=== PATIENT | female | born 1970 | race Caucasian/White ===

== ENCOUNTER 2016-10-02 10:30 | Emergency (ER) | payer OTHER ==
[~2016-10-02] VITALS: Ht 165.1 cm; Wt 148.6 kg
[~2016-10-02 10:30] MED LIST: CITA20TA PO; DEPO PROVERA IM; HYDR-4003 PO
[2016-10-02 10:33] VITALS: BP 152/97; PULSE 84; RESP 16; O2SAT 99
--- NOTE | 2016-10-02 10:45 | ED.REPORT ---
HPI-Chest Pain 40 and Over Date of Service Oct 02, 2016 ED Provider: Karson Woodard DO A 46 year old female presents to the ED complaining of bilateral lower extremity swelling that began two weeks ago. Associated symptoms included chest heaviness, weakness, recent weight loss, abdominal discomfort and mild SOB. She reports that the swelling has not improved since initial onset. Patient was sent from Urgent Care with concern for a possible blood clot. She recently travelled to [place]. Patient denies fever, chills, or cough. Nursing Notes Stated Complaint: POSSIBLE BLOOD CLOTS Chief Complaint: Chest Pain Nursing Notes Reviewed: Yes Allergies: Uncoded Allergies: SHELLFISH (Allergy, Unknown, 05/23/16) Scheduled Furosemide (Lasix) 20 Mg Tablet 20 MG PO DAILY Scheduled PRN Ibuprofen (Ibuprofen) 400 Mg Tablet 400 MG PO QID PRN PRN For Pain Miscellaneous Medications ([Esure birthcontrol]) General Time Seen by MD: 10:42 Chief Complaint Other (Lower extremity edema ) Hx Obtained From: Patient Arrived By: Walk-in Sudden in Onset?: No Onset Occurred: More than a week ago... (2 weeks) Symptom Duration: Since onset Location: : Chest left: Chest right Quality: Heaviness Radiation: : Does not radiate Migration/Movement: Reports: None Severity: Current: Mild Severity: Maximum: Mild Associated with: Denies: Cough, non-productive, Cough, productive, Fever, Shortness of Breath Pertinent Negative: Pt denies other symptoms Recent Healthcare: No recent hospitalization, Recent doctor visit Risk Factors )( CAD Risk Stratification Risk factors reviewed )( TAD Risk Stratification Risk factors reviewed )( PE Risk Stratification Risk factors reviewed PERC Rule Age 50 or over PERC Result: One or more crit "Yes" Well's Criteria for PE Well's PE Score: 0-2 pts (low risk 3.6%) Past Medical History Past Medical History None reported Past Surgical History None reported Smoking History Unknown if Ever Smoker Social History Other Social History: Good social support, Local resident Ambulatory Status Independent Review of Systems Constitutional: Reports: Recent wt loss, Weakness - generalized, Denies: Chills, Fever Respiratory: Reports: Shortness of breath (mild), Denies: Non-productive cough, Prod cough, clear Cardiovascular: Reports: Chest pain (chest heaviness) GI: Reports: Abdominal pain, Denies: Nausea, Vomiting Neurologic: Denies: Change LOC Complete sys rev & neg: except as marked. Physical Exam Initial Vital Signs Vital Signs (First) Date Time Temp Pulse Resp B/P Pulse Ox O2 Delivery O2 Flow Rate FiO2 10/02/16 10:33 36.4 84 16 152/97 99 Room Air Initial VS: Reviewed Head / Eyes: Atraumatic, Normocephalic, PERRL Skin: Warm, Dry, No cyanosis Neurologic: Alert, Oriented, Nonfocal Psychiatric: Mood/affect normal, Behavior normal, Normal thought content General/Constitutional: Awake, Alert Respiratory / Chest: Atraumatic, Breath sounds NL, Breath sounds = bilat Cardiovascular: Heart rate NL, Regular rhythm, Heart sounds NL CARDIO: Trace edema in bilateral lower extremities Abdomen: Atraumatic, Soft Neck: Atraumatic, Supple, No JVD Lower Extremity / Pelvis / MS: Atraumatic, Neurologic intact, Vascular intact Upper Extremity / MS: Atraumatic, Inspection NL, Neurologic intact, Vascular intact Interpretation & Diagnostics Lab Results Interpretation Result Diagram: 10/02/16 1050 10/02/16 1050 Test 10/02/16 10:50 White Blood Count 13.1th/mm3 (3.8-10.1) Red Blood Count 5.47mil/mm3 (3.90-5.20) Hemoglobin 16.4g/dL (12.0-15.6) Hematocrit 47.5% (35.0-46.0) Mean Corpuscular Volume 86.8fL (81-100) Mean Corpuscular Hemoglobin 30.0pg (27.0-35.0) Mean Corpuscular Hemoglobin Concent 34.5% (32.0-37.0) Red Cell Distribution Width 13.4% (12.3-15.4) Platelet Count 327bil/L (150-400) Neutrophils (%) (Auto) 57.5% (40-74) Lymphocytes (%) (Auto) 30.4% (14-46) Monocytes (%) (Auto) 8.3% (4-12) Eosinophils (%) (Auto) 3.2% (0-5) Basophils (%) (Auto) 0.2% (0-3) D-Dimer < 0.5mg/L (<0.50) Urine Color Yellow (YELLOW) Urine Appearance Clear (CLEAR,HAZY) Urine pH 6.0 (5.0-8.0) Urine Specific [place] 1.019 (1.003-1.035) Urine Protein Negativemg/dL (NEG,TRACE) Urine Glucose (UA) Negativemg/dL (NEGATIVE) Urine Ketones Negativemg/dL (NEGATIVE) Urine Occult Blood Negative (NEGATIVE) Urine Nitrite Negative (NEGATIVE) Urine Bilirubin Negative (NEGATIVE) Urine Urobilinogen Normalmg/dL (NORMAL) Urine Leukocyte Esterase Negative (NEGATIVE) Urine RBC 0-2/hpf (0-2) Urine WBC 0-5/hpf (0-5) Urine Epithelial Cells Few/hpf (NONE-MOD) Urine Crystals None seen (NONE SEEN) Urine Bacteria Few/hpf (NONE-FEW) Urine Hyaline Casts None/lpf (NONE) Urine Granular Casts None seen (NONE SEEN) Urine Waxy Casts None seen (NONE SEEN) Urine Red Blood Cell Casts None seen (NONE SEEN) Urine White Blood Cell Casts None seen (NONE SEEN) Urine Mucus None seen (None Seen) Urine Trichomonas None seen (NONE SEEN) Urine Yeast None (NONE SEEN) Urinalysis Comment None Urine Culture Reflexed Not indicated Hold Urine Received (Received) Sodium Level 137mEq/L (134-144) Potassium Level 4.3mEq/L (3.5-5.2) Chloride Level 100mEq/L (97-108) Carbon Dioxide Level 22mmol/L (18-29) Blood Urea Nitrogen 13mg/dL (6-24) Creatinine 0.71mg/dL (0.57-1.00) Estimat Glomerular Filtration Rate 128mL/min (>59) Glucose Level 143mg/dL (60-99) Calcium Level 8.8mg/dL (8.5-10.1) Magnesium Level 2.1mg/dL (1.6-2.6) Total Bilirubin 0.3mg/dL (0.0-1.2) Aspartate Amino Transf (AST/SGOT) 17U/L (0-50) Alanine Aminotransferase (ALT/SGPT) 22U/L (0-32) Alkaline Phosphatase 68U/L (25-150) Troponin T 0.010ug/L (0.0-0.011) Pro-B-Type Natriuretic Peptide 265.4pg/mL (0-130) Total Protein 7.9g/dL (6.4-8.4) Albumin 4.2g/dL (3.4-5.0) ECG Interpretation ECG Interpretation: Sinus Rhythm Rate 66 PAC's Time: 11:06 Interpreted by: ED physician X-Ray Chest Interpretation Chest Xray Interpretation: IMPRESSION: No acute cardiopulmonary disease process. Dictated by: Coleen Wolfe MD, PhD on 10/02/2016 at 11:34 Interpretation / Wet Read by: Interpret - Radiologist Re-Eval/Medical Decision Med Decision/Clinical Course Concern with lower extremity edema and some chest heaviness, this may be pulmonary embolism or acute coronary syndrome or congestive heart failure. This seems largely unremarkable, overall she is low risk for pulmonary embolism and deep vein thrombosis, her d-dimer is negative, her vital signs and in stable, she is ambulatory to and from the restroom without event. This does not seem to be heart failure, liver failure, kidney failure, nephrotic syndrome, pulmonary embolism, acute coronary syndrome or any other life-threatening pathology that I can identify. We will start her on Lasix, 20 mg daily which she can titrate every few days as needed for the peripheral edema. She is instructed to follow-up with a primary care doctor. Additionally return and follow-up precautions are given. Time of Eval: 11:55 Patient Status: Condition improved Re-Evaluation/Progress Note: Patient is rechecked and reports that she is feeling much better. Patient is informed of her lab results, EKG results, X-ray results and diagnosis. Counseled Regarding: Diagnosis, Lab results, Need for follow-up, When/why to return to ED Discharge & Departure Primary Impression: Lower leg edema Disposition: Home Discharge Condition All VS Reviewed: Yes Condition: Stable Patient Instructions: Leg Edema (ED) Additional Instructions: Thank you for trusting us with your care this morning. Your emergency department evaluation today including EKG, lab work and chest X- ray are reassuring that there is no dangerous cause for concern at this time and there is no current evidence of a blood clot. A clear cause of your symptoms was not identified so I recommend you schedule a follow up with your primary care physician in the next 2-3 days for a recheck. Please return to the emergency department for any new or worsening conditions including any difficulty breathing, numbness/tingling, fevers, or chest pain. Referrals: [facility] (PCP) Scribe Attestation Portions of this note were transcribed by Ginny Warner. I, Dr. Woodard personally performed the history, physical exam and medical decision-making; I reviewed and confirmed the accuracy of the information in the transcribed note. Signed by: Lam Monae, 10/02/16 1904. copies to: [facility] Timothy S DO Oct 02, 2016 10:45 GINNY WARNER Oct 02, 2016 11:01
[2016-10-02] MEDS ORDERED: [UNRECOGNIZED DRUG - SUPPLY] (11:14)
[2016-10-02] MEDS ORDERED: IBUP400T22 PO (11:14)
[2016-10-02 11:21] LABS: BASOPHILS % (AUTO) 0.2 % (0-3); EOSINOPHILS % (AUTO) 3.2 % (0-5); MONOCYTES % (AUTO) 8.3 % (4-12); Mean Corpuscular Volume 86.8 fL (81-100); NEUTROPHILS % (AUTO) 57.5 % (40-74); Platelet Count 327 bil/L (150-400)
[2016-10-02 11:36] LABS: TROPONIN T 0.01 ug/L (0.0-0.011)
--- NOTE | 2016-10-02 11:36 | DRSVH ---
PROCEDURE: X-RAY CHEST, TWO VIEWS ([id number]) INDICATIONS: chest pain TECHNIQUE: 2 views of the chest were acquired. COMPARISON: None. FINDINGS: Surgical changes and devices: None. Lungs and pleura: No pleural effusions or pneumothorax. Lungs are clear. Mediastinum: Mediastinal contours are normal. Heart size is normal. Bones and chest wall: No suspicious bony abnormalities. Soft tissues appear unremarkable. IMPRESSION: No acute cardiopulmonary disease process. Dictated by: Coleen Wofle MD, PhD on 10/02/2016 at 11:34 Approved by: Coleen Wolfe MD, PhD on 10/02/2016 at 11:34
[2016-10-02 11:47] LABS: Magnesium 2.1 mg/dL (1.6-2.6)
[2016-10-02 12:36] LABS: APPEARANCE,URINE CLEAR (CLEAR,HAZY); COLOR,URINE YELLOW (YELLOW); OCCULT BLOOD,URINE NEGATIVE (NEGATIVE); UROBILINOGEN,URINE NORMAL (NORMAL)
[2016-10-02] MEDS ORDERED: FURO-129 PO (12:45)
[2016-10-02 12:58] VITALS: BP 146/88; PULSE 80; RESP 18; O2SAT 99
== END 2016-10-02 12:59 | disposition home or self-care (01) ==
LOC: SED 10:30
DX: R60.0 Localized edema (principal); R06.02 Shortness of breath; R07.89 Other chest pain; Z91.013 Allergy to seafood